=== PATIENT | female | born 2005 | race Caucasian/White ===

== ENCOUNTER 2025-01-03 07:19 | Outpatient (CLI) | payer OTHER, SELFPAY ==
--- OUTSIDE RECORDS SUMMARY | 2024-01-12 14:30 | XMS_ITS | Encounter Summary ---
Author Organization [place] [address] Care Team Providers Care Painter Plate Name Role Phone Myesha Cat APRN Primary Care Provider [phone] Reason for Visit * Oncology Medication Prior Authorization (Routine) - Closed Specialty Diagnoses / Procedures Referred By Contkalpesh t Referred To Contact Diagnoses Iron malabsorption Iron deficiency anemia due to chronic blood loss Procedures [place] IRON SUCROSE INJECTION Nilda Cano APRN 1 [place] [address] Phone: tel: fax: [address] [place] [address] Phone: tel: fax: Referral ID Status Reason Start Date Expiration Date Visits Re quested Visits Authorized [id number] Closed 12/27/2023 12/26/2024 99 99 Encounter Details Date Type Department Care Team (Late st Contact Info) Description 01/12/2024 2:30 PM EDT Hospital Encounter [facility] [address] [place] [address] Excused Social History Tobacco Use [...] as of this encounter Functional Status * Cognitive and Functional Status Question Answer Date of Assessment Author Is the person deaf or does he/she have serious difficulty hearing? No 09/20/2024 9:22 AM EDT Sneha Rodrigues Ma, RMA Is the person blind or does he/she have serious difficulty seeing even when wearing glasses? No 09/20/2024 9:22 AM EDT Sneha Rodrigues Ma, RMA Does this person have seriou s difficulty walking or climbing stairs? No 09/20/2024 9:22 AM EDT Sneha Rodrigues Ma, RMA Does this person have difficulty dressing or bathing? No 09/20/2024 9:22 AM EDT Sneha Bro, RMA * PHQ-9 Total Score Answer Date of Assessment Author 0 09/20/2024 9:22 AM EDT Nyla Rodrigues, MARCA * Question Answer Date of Assessment Author Little interest or pleasure in doing things 0 09/20/2024 9:22 AM EDT Sneha Rodrigues Ma, SHANTELLE Feeling down, depressed, or hopeless 0 09/20/2024 9:22 AM EDT Sneha Rodrigues Ma, SHANTELLE PHQ-2 Total Score 0 09/20/2024 9:22 AM EDT Sneha Rodrigues, RMA * Question Answer Date of Assessment Author Feeling Nervous, Anxious, or on Edge 0 09/20/2024 9:22 AM EDT Sneha Rodrigues Ma, SHANTELLE Not Being Able to Stop or Control Worrying 0 09/20/2024 9:22 AM EDT Sneha Rodirgues Ma, RMA Worrying too Much About Different Things 0 09/20/2024 9:22 AM EDT Sneha Rodrigues Ma, MARCA Trouble Relaxing 0 09/20/2024 9:22 AM EDT Sneha Vazquez, RMA Being so Restless That it is Hard to Sit Still 0 09/20/2024 9:22 AM EDT Sneha Rodrigues Ma, RMA Becoming Easily Annoyed or Irritable 0 09/20/2024 9:22 AM EDSneha Johnson Ma, SHANTELLE Feeling Afraid as if Somethi ng Awful Might Happen 0 09/20/2024 9:22 AM Sneha Lewis Ma, RMA PRASHANT-7 Total Score 0 09/20/2024 9:22 AM Sneha Lewis RMA documented as of this encounter Mental Status * Cognitive and Functional Status Question Answer Entry Date Author Because of a physical, menta l or emotional condition, does this person have difficulty doing errands alone such as visiting a doctor's office or shopping? No 09/20/2024 9:22 AM Sneha Lewis Ma, RMA Because of a physical, menta l or emotional condition, does this person have serious difficulty concentrating, remembering or making decisions? No 09/20/2024 9:22 AM Sneha Lewis Ma, RMA documented in this encounter Plan of Treatment Not on file documented as of this encounter Goals Goal Patient Goal Type Associated Problems Recent Progress Patient-Stated? Author Maintain a healthy diet, exercise regularly and maintain an ideal body weight General No Juana Matson RMA documented as of this encounter Visit Diagnoses Not on filedocumented in this encounter Care Teams Painter Plate Relationship Specialty Start Date End Date Myesha Cat APRN [address] [place] [id number] PCP - General Nurse Practitioner 10/04/21 documented as of this encounter
--- OUTSIDE RECORDS SUMMARY | 2025-01-03 07:22 | XMS_ITS | Encounter Summary ---
[facility] Address [address] [place] [address] Care Team Providers Care Suppression Crew Leader Name Role Phone Myesha Cat APRN Primary Care Provider [phone] [phone] Reason for Visit * Reason Comments Med Refill Encounter Details Date Type Department Care Team (Late st Contact Info) Description 03/22/2024 Refill [facility] OBGYN [address] [facility] [address] [place] [phone] Edmar Moore MD [address] [facility] [address] [place] [address] Pelvic mass; Intramural leiomyoma of uterus; Iron deficiency anemia due to chronic blood loss Social History Tobacco Use Types Packs/Day Years Used Date Smoking Tobacco: Never Smokeless Tobacco: Never Alcohol Use Standard Drinks/Week Comments Never 0 (1 standard drink = 0.6 oz pur e alcohol) [facility] Utilities Answer Date Recorded In the past 12 months has [employer], gas, oil, or water [employer] threatened to shut off services in your home? No 01/10/2024 AUDIT-C Answer Date Recorded Q1: How often do you have a drink containing alcohol? Never 01/10/2024 Q2: How many drinks containi ng alcohol do you have on a typical day when you are drinking? Patient does not drink Q3: How often do you have si x or more drinks on one occasion? Never 01/10/2024 Overall Financial Resource Strain (CARDIA) Answe r Date Recorded How hard is it for you to pa y for the very basics like food, housing, medical care, and heating? Very hard 01/10/2024 [facility] - Occupational Stress Questionnaire Answer Date Recorded Do you feel stress - tense, restless, nervous, or anxious, or unable to sleep at night because your mind is troubled all the time - these days? Not at all 01/10/2024 Exercise Vital Sign Answer Date Recorde d On average, how many days pe r week do you engage in moderate to strenuous exercise (like a brisk walk)? 7 days 01/10/2024 On average, how many minutes do you engage in exercise at this level? 0 min 01/10/2024 Hunger Vital Sign Answer Date Recorded Within the past 12 months, y ou worried that your food would run out before you got the money to buy more. Never true 01/10/20 24 Within the past 12 months, t he food you bought just didn't last and you didn't have money to get more. Never true 01/10/2024 PRAPARE - Transportation Answer Date Re corded In the past 12 months, has l ack of transportation kept you from medical appointments or from getting medications? No 12/30 In the past 12 months, has l ack of transportation kept you from meetings, work, or from getting things needed for daily living? No 01/10/2024 Abuse Screen Answer Date Recorded Feels Unsafe at Home or Work/School no 01/10/2024 Feels Threatened by Someone no 12/30 Does Anyone Try to Keep You From Having Contact with Others or Doing Things Outside Your Home? no 01/10/2024 Physical Signs of Abuse Present no 01/10/2024 Housing Stability Answer Date Recorded Current Living Arrangements home 12/30 Potentially Unsafe Housing Conditions none 01/10/2024 Family and Community Support Answer Basilio e Recorded If for any reason you need h elp with day-to-day activities such as bathing, preparing meals, shopping, managing finances, etc., do you get the help you need? I need a lot more help 01/10/2024 How often do you feel lonely or isolated from those around you? Never 01/10/2024 Employment Answer Date Recorded Do you want help finding or keeping work or a job? Yes, help finding work 01/10/2024 Disabilities Answer Date Recorded Difficulty Concentrating, Remembering or Making Decisions no 01/10/2024 Difficulty Managing Errands Independently no 01/10/2024 Education Answer Date Recorded Do you want help with school or training? For example, starting or completing job training or getting a high school diploma, GED or equivalent No 01/10/2024 Preferred Language Polish 01/10/2024 PHQ-2 Answer Date Recorded Retired PHQ-9: Brief Depression Severity Measure Score 0 01/10/2024 Comments No Sex and Gender Information Value Date Recorded Sex Assigned at Not on file Legal Sex Female 11:53 AM EDT Gender Identity Not on file Sexual Orientation Not on file documented as of this encounter Plan of Treatment Not on file documented as of this encounter Visit Diagnoses Diagnosis Pelvic mass Abdominal or pelvic swelling, mass or lump, unspecified site Intramural leiomyoma of uterus Iron deficiency anemia due to chronic blood loss Iron deficiency anemia secondary to blood loss (chronic) documented in this encounter Care Teams Suppression Crew Leader Relationship Specialty Start Date End Date Myesha Cat APRN [address] [place] [address] PCP - General Nurse Practitioner 01/09/24 documented as of this encounter
--- OUTSIDE RECORDS SUMMARY | 2025-01-03 07:22 | XMS_ITS | Clinical Summary ---
Author Organization [facility] Address [address] [place] [address] Care Team Providers Care Floral Decorator Name Role Phone Myesha Cat APRN Primary Care Provider [phone] [phone] Allergies No known active allergies Medications ferrous sulfate 325 (65 FE) MG tablet Take 1 tablet by mouth 2 (Two) Times a Day With Meals. Active ascorbic acid (VITAMIN C) 500 MG tablet Take 1 tablet by mouth Daily. OTC Active Cholecalciferol 25 MCG (1000 UT) tablet Take 1 tablet by mouth Daily. OTC Active dicyclomine (BENTYL) 20 MG tablet Take 1 tablet by mouth 3 (Three) Times a Day As Needed for Abdominal Cramping. 30 tablet 3 01/10/2024 4:23 PM EDT 4 Active ibuprofen (ADVIL,MOTRIN) 600 MG tablet Take 1 tablet by mouth Every 6 (Six) Hours As Needed for Mild Pain. 30 tablet 3 01/10/2024 4:23 PM EDT 4 Active leuprolide (Lupron Depot, 1-Month,) 3.75 MG injectionIndica tions:Intramura l leiomyoma of uterus,Pelvic mass,Iron deficiency anemia due to chronic blood loss Inject 3.75 mg into the appropriate muscle as directed by prescriber Every 28 (Twenty-Eight) Days. 1 kit 2 4 Active Additional Information Patient not taking.Reported on 10/02/2024 Drospirenone (Slynd) 4 MG tablet Take by mouth. Activ e Drospirenone (Slynd) 4 MG tablet Take 1 tablet by mouth Daily. 84 tablet 3 5 Active Active Problems Problem Noted Date Diagnosed Date Intramural leiomyoma of uterus 01/10/2024 Pelvic mass 01/09/2024 Family History Medical History Relation Name Comments Breast cancer Neg Hx Colon cancer Neg Hx Ovarian cancer Neg Hx Uterine cancer Neg Hx Social History Tobacco Use Types Packs/Day Years Used Date Smoking Tobacco: Never Smokeless Tobacco: Never Tobacco Cessation:Counseling Given: Not Answered Alcohol Use Standard Drinks/Week Comments Never 0 (1 standard drink = 0.6 oz pur e alcohol) [facility] Utilities Answer Date Recorded In the past 12 months has th e [employer], gas, oil, or water [employer] threatened to shut off services in your [...] medical care, and heating? Very hard 01/10/2024 [facility] - Occupational Stress Questionnaire Answer Date Recorded [...] GED or equivalent No 01/10/2024 Preferred Language Nauruan 01/10/2024 PHQ-2 Answer Date Recorded Retired PHQ-9: Brief Depression Severity Measure Score 0 01/10/2024 Comments No Sex and Gender Information Value Date Recorded Sex Assigned at Not on file Legal Sex Female 11:53 AM EDT Gender Identity Not on file Sexual Orientation Not on file Last Filed Vital Signs Vital Sign Reading Time Taken Comments Blood Pressure 118/76 10/02/2024 11:15 AM EDT Pulse 77 01/10/2024 7:19 AM EDT Temperature 36.7 C (98 F) 01/10/2024 7:19 AM EDT Respiratory Rate 16 01/10/2024 7:19 AM EDT Oxygen Saturation 100% 01/10/2024 4:41 AM EDT Inhaled Oxygen Concentration - - Weight 68.9 kg (152 lb) 10/02/2024 11:15 AM EDT Height 166.4 cm (5' 5.51 ) 07/02/2024 2:43 PM ES T Body Mass Index 24.9 07/02/2024 2:43 PM EST Plan of Treatment Health Maintenance Due Date Last Done Comments Annual Gynecologic Pelvic and Breast Exam 2003 HPV VACCINES (1 - 3-dose series) 11/01/2018 MENINGOCOCCAL B VACCINE (1 of 2 - Standard) 2019 COVID-19 Vaccine (1 - 2023- season) 2023 ANNUAL PHYSICAL 01/10/2024 HEPATITIS C SCREENING 01/10/2024 TDAP/TD VACCINES (2 - Td or Tdap) 08/11/2024 08/11/2014 PAP SMEAR 11/01/2024 INFLUENZA VACCINE 01/29/2025 Pneumococcal Vaccine 0-49 Aged Out 2007, 11/03/2004, 06/01/2004, Additional history exists No longer eligible based on patient's age to complete this topic MENINGOCOCCAL VACCINE Completed 10/04/2021 Insurance [place] [id number] Advance Directives * CPR (Attempt to Resuscitate) (Latest Code Status on File) Date Activated Date Inactivated Comments 01/09/2024 2:17 PM 01/10/2024 6:50 PM Question Answer Comments Code Status (Patient has no pulse and is not breathing): CPR (Attempt to Resuscitate) Medical Interventions (Patie nt has pulse or is breathing): Full Support Care Teams Floral Decorator Relationship Specialty Start Date End Date Myesha Cat APRN [address] [place] [address] PCP - General Nurse Practitioner 01/09/24
--- OUTSIDE RECORDS SUMMARY | 2025-01-03 07:22 | XMS_ITS | Encounter Summary ---
[facility] Organization [facility] Address [address] [place] [address] Care Team Providers Care Experimental Physicist Name Role Phone Myesha Cat APRN Primary Care Provider [phone] [phone] Reason for Visit * Reason Comments Med Refill Encounter Details Date Type Department Care Team (Late st Contact Info) Description 07/03/2024 Refill [facility] OBGYN [address] [address] Edmar Moore MD [address] [facility] [address] [place] [address] Intramural leiomyoma of uterus; Pelvic mass; Iron deficiency anemia due to chronic blood loss Social History Tobacco Use Types Packs/Day Years Used Date Smoking Tobacco: Never Smokeless Tobacco: Never Alcohol Use Standard Drinks/Week Comments Never 0 (1 standard drink = 0.6 oz pur e alcohol) [facility] Utilities Answer Date Recorded In the past 12 months has [employer], gas, oil, or water [employer] threatened to shut off services in your [...] medical care, and heating? Very hard 01/10/2024 [facility] - Occupational Stress Questionnaire Answer Date [...] GED or equivalent No 01/10/2024 Preferred Language Malay 01/10/2024 PHQ-2 Answer Date Recorded Retired PHQ-9: Brief Depression Severity Measure Score 0 01/10/2024 Comments No Sex and Gender Information Value Date Recorded Sex Assigned at Not on file Legal Sex Female 11:53 AM EDT Gender Identity Not on file Sexual Orientation Not on file documented as of this encounter Miscellaneous Notes * Telephone Encounter - Neva Barragan MA - 07/03/2024 10:31 AM EST Medication d/c'd on 07/02/24 documented in this encounter Plan of Treatment Not on file documented as of this encounter Visit Diagnoses Diagnosis Intramural leiomyoma of uterus Pelvic mass Abdominal or pelvic swelling, mass or lump, unspecified site Iron deficiency anemia due to chronic blood loss Iron deficiency anemia secondary to blood loss (chronic) documented in this encounter Care Teams Experimental Physicist Relationship Specialty Start Date End Date Myesha Cat APRN [address] [place] [address] PCP - General Nurse Practitioner 01/09/24 documented as of this encounter
--- OUTSIDE RECORDS SUMMARY | 2025-01-03 07:22 | XMS_ITS | Clinical Summary ---
Author Organization [facility] Address [address] [facility] [address] [place] [address] Phone Care Team Providers Care Door To Door Lead Generation Name Role Phone Myesha Cat APRN Primary Care Provider [phone] [phone] Mohini Harvey MD Unavailable [phone] Allergies No known active allergies Medications ferrous sulfate 325 mg (65 mg iron) Oral Tablet, Delayed Release (E.C.)Indication s:Microcytic anemia Take 1 Tablet by mouth 2 times daily. 180 Tablet 3 12/22/2023 Active ascorbic acid (VITAMIN C ORAL) Take by mouth daily. Active calcium carbonate/vitami n D3 (VITAMIN D-3 ORAL) Take by mouth daily. Active dicyclomine (BENTYL) 20 mg Oral Tablet Take 20 mg by mouth as needed. 01/10/2024 Active norethindrone (AYGESTIN) 5 mg Oral Tablet TAKE 1 TABLET BY MOUTH ONCE DAILY FOR 30 DOSES 03/02/2024 Active traMADoL (ULTRAM) 50 mg Oral Tablet as needed. 01/10/2024 Active Active Problems Problem Noted Date Diagnosed Date Iron deficiency anemia due to chronic blood loss 12/27/2023 Iron malabsorption 12/27/2023 Immunizations Immunization Administration Dates Next Due DTaP 11/20/2007, 5,06/01/2004,03/30,01/06/2004 Hep B/HiB 11/03/2004,03/30/2004,01/06/2004 Hepatitis A, Ped/Adol, 2 Dose 10/04/2021, 019 HiB (HbOC) 06/01/2004 IPV 11/20/2007, 5,03/30/2004,01/05 LAST MANUFACTURED 2011-Pneum ococcal Conjugate 7 Valent 11/20/2007,11/03/2004,06/01/2004,03/30,01/06/2004 MMR 11/20/2007,11/03/2004 Meningococcal Conjugate 10/04/2021 Tdap 08/11/2014 Varicella 11/05/2008,02/09/2005 Family History Medical History Relation Name Comments Gout Father Diabetes Maternal Grandfather Cancer Maternal Grandmother Cancer Mother Cancer Paternal Grandmother High Blood Pressure Paternal Grandmother Relation Name Status Comments Father Alive Maternal Grandfather Maternal Grandmother Mother Alive Paternal Grandmother Social History Tobacco Use Types Packs/Day Years Used Date Smoking Tobacco: Never Passive Smoke Exposure: Never Smokeless Tobacco: Never Tobacco Cessation:Counseling Given: [...] on file Sexual Orientation Not on file Obstetrics History Last Filed Vital Signs Vital Sign Reading Time Taken Comments Blood Pressure 110/74 09/20/2024 9:22 AM EDT Pulse 89 09/20/2024 9:22 AM EDT Temperature 36.8 C (98.2 F) 09/20/2024 9:22 AM EDT Respiratory Rate 12 03/22/2024 2:08 PM EST Oxygen Saturation 99% 09/20/2024 9:22 AM EDT Inhaled Oxygen Concentration - - Weight 68.9 kg (152 lb) 09/20/2024 9:22 AM EDT Height 166.4 cm (5' 5.5 ) 09/20/2024 9:22 AM EDT Body Mass Index 24.91 09/20/2024 9:22 AM EDT Plan of Treatment Health Maintenance Due Date Last Done Comments HPV (1 - 3-dose series) 11/01/2018 Meningococcal B Vaccine (1 of 2 - Standard) 2019 DTaP/TDaP/Td (7 - Td or Tdap) 08/11/2024 08/11/2014, 11/20/2007, 02/09/2005, Additional history exists Cervical Cancer Screening 11/01/2024 Pap Smear 11/01/2024 Annual Wellness Exam 12/20/2024 12/21/2023 COVID-19 Vaccine ( season) 2024 Influenza Vaccine (#1) 2024 Hepatitis B Vaccine Completed 11/03/2004, 03/30/2004, 01/06/2004 Pneumococcal Vaccine 0-49 Aged Out 2007, 11/03/2004, 06/01/2004, Additional history exists No longer eligible based on patient's age to complete this topic Goals Goal Patient Goal Type Associated Problems Recent Progress Patient-Stated? Author Maintain a healthy diet, exercise regularly and maintain an ideal body weight General No Juana Matson RMA Insurance [id number] [place] [phone] Care Teams Door To Door Lead Generation Relationship Specialty Start Date End Date Myesha Cat APRN [address] [place] [address] PCP - General Nurse Practitioner 10/04/21 Mohini Harvey MD [address] [place] [address] [place] [address] Medical Oncologist Internal Medicine-Hematology and Oncology 04/05/24
--- OUTSIDE RECORDS SUMMARY | 2025-01-03 07:22 | XMS_ITS | Encounter Summary ---
Author Organization [place] [address] Care Team Providers Care Automotive Parts Salesperson Name Role Phone Myesha Cat APRN Primary Care Provider [phone] Mohini Harvey MD Unavailable [phone] Encounter Details Date Type Department Care Team (Latest Contact Info) Description 09/24/2024 Results Follow-Up [facility] [address] [facility] [place] [address] Myesha Cat APRN [address] [place] [address] IRON+TIBC, CBC WITH DIFF, COMPREHENSIVE METABOLIC PANEL, Additional followed-up results: 5 Social History Tobacco Use Types Packs/Day Years [...] as of this encounter Functional Status * Is the person deaf or does he/she have serious difficulty hearing? Answer Date of Assessment Author No 09/20/2024 9:22 AM EDT Nyla Rodrigues RMA * Is the person blind or does he/she have serious difficulty seeing even when wearing glasses? Answer Date of Assessment Author No 09/20/2024 9:22 AM Nyla Lewis RMA * Does this person have serious difficulty walking or climbing stairs? Answer Date of Assessment Author No 09/20/2024 9:22 AM Nyla Lewis RMA * Does this person have difficulty dressing or bathing? Answer Date of Assessment Author No 09/20/2024 9:22 AM Nyla Lewis RMA * Because of a physical, mental or emotional condition, does this person have difficulty doing errands alone such as visiting a doctor's office or shopping? Answer Date of Assessment Author No 09/20/2024 9:22 AM Nyla Lewis RMA documented as of this encounter Mental Status * Because of a physical, mental or emotional condition, does this person have serious difficulty concentrating, remembering or making decisions? Answer Entry Date Author No 09/20/2024 9:22 AM Nyla Lewis RMA documented in this encounter Plan of Treatment Not on file documented as of this encounter Goals Goal Patient Goal Type Associated Problems Recent Progress Patient-Stated? Author Maintain a healthy diet, exercise regularly and maintain an ideal body weight General No Juana Matson RMA documented as of this encounter Visit Diagnoses Not on filedocumented in this encounter Care Teams Automotive Parts Salesperson Relationship Specialty Start Date End Date Myesha Cat APRN [address] [place] [id number] PCP - General Nurse Practitioner 10/04/21 Mohini Harvey MD [address] [place] [address] [place] [address] Medical Oncologist Internal Medicine-Hematology and Oncology 04/05/24 documented as of this encounter
--- NOTE | 2025-01-03 07:30 | CT_ITS ---
FINAL REPORT TECHNIQUE: Thin section axial images were obtained through the paranasal sinuses without contrast. Reconstruction images were obtained from the axial data. Exam was performed using dose reduction techniques such as automated exposure control, adjustment of the mA and kV according to patient size, and use of iterative reconstruction technique. CLINICAL HISTORY: evaluate and treat for sinus polyps COMPARISON: None FINDINGS: There is a mucous retention cyst or polyp in the floor of the right maxillary sinus measuring 20 mm in diameter. Otherwise, there is mild mucoperiosteal thickening in the maxillary sinuses. The sphenoid, ethmoid, and frontal sinuses are clear. The maxillary infundibulum is patent on the left, but occluded on the right by mucosal thickening. There is no significant nasal septal deviation. There is no acute osseous abnormality. Remaining soft tissues are unremarkable. IMPRESSION: Mucous retention cyst/polyp is present in the floor of the right maxillary sinus measuring 20 mm in size. Otherwise, there is mild mucoperiosteal thickening of the maxillary sinuses. The right maxillary infundibulum is occluded by mucosal thickening, while the left is patent. Reviewed, Interpreted and Dictated by Ivory Kaplan MD Transcribed by Jyoti Collins Authenticated and [facility]
== END 2025-01-03 23:59 | disposition home or self-care (01) ==
PROVIDERS: PCP Nurse Practitioner; Visit Provider Nurse Practitioner
DX: J33.8 Other polyp of sinus (principal); J32.9 Chronic sinusitis, unspecified; R93.0 Abnormal findings on diagnostic imaging of skull and head, not elsewhere classified
CPT/HCPCS: 70486

== ENCOUNTER 2025-03-21 08:54 | Outpatient (CLI) | payer OTHER, SELFPAY ==
--- OUTSIDE RECORDS SUMMARY | 2024-01-12 13:30 | XMS_ITS | Encounter Summary ---
Author Organization [place] [address] Care Team Providers Care Customer Marketing Manager Name Role Phone Myesha Cat APRN Primary Care Provider [phone] [phone] Reason for Visit * Oncology Medication Prior Authorization (Routine) - Closed Specialty Diagnoses / Procedures Referred By Contkalpesh t Referred To Contact Diagnoses Iron malabsorption Iron deficiency anemia due to chronic blood loss Procedures [place] IRON SUCROSE INJECTION Nilda Cano APRN 1 [place] [address] Phone: tel: fax: [address] [place] [address] Phone: tel: fax: Referral ID Status Reason Start Date Expiration Date Visits Re quested Visits Authorized [id number] Closed 12/27/2023 12/26/2024 99 99 Encounter Details Date Type Department Care Team (Late st Contact Info) Description 01/12/2024 2:30 PM EDT Hospital Encounter [facility] [address] [place] [address] Excused Social History Tobacco Use Types Packs/Day Years Used Date Smoking Tobacco: Never Passive Smoke Exposure: Never Smokeless Tobacco: Never Alcohol Use Standard Drinks/Week Comments Never 0 (1 standard drink = 0.6 oz pur e alcohol) PHQ-2 Answer Date Recorded PHQ-2 Total Score 0 09/20/2024 Sexually Active Control Partners Comments Never Comments No Sex and Gender Information Value Date Recorded Sex Assigned at Not on file Legal Sex Female 10:46 AM EDT Gender Identity Not on file Sexual Orientation Not on file documented as of this encounter Functional Status * PHQ-9 Total Score Answer Date of Assessment Author 0 09/20/2024 9:22 AM EDT Nyla Rodrigues RMA * Question Answer Date of Assessment Author Little interest or pleasure in doing things 0 09/20/2024 9:22 AM EDT Sneha Rodrigues Ma, SHANTELLE Feeling down, depressed, or hopeless 0 09/20/2024 9:22 AM EDT Sneha Rodrigues Ma, RMNyla PHQ-2 Total Score 0 09/20/2024 9:22 AM EDT Sneha Rodrigues, RMA documented as of this encounter Mental Status * Question Answer Entry Date Author Because of a physical, menta l or emotional condition, does this person have difficulty doing errands alone such as visiting a doctor's office or shopping? No 09/20/2024 9:22 AM EDT Sneha Rodrigues Ma, SHANTELLE Because of a physical, menta l or emotional condition, does this person have serious difficulty concentrating, remembering or making decisions? No 09/20/2024 9:22 AM EDT Sneha Rodrigues Ma, RMA documented in this encounter Plan of Treatment Not on file documented as of this encounter Goals Goal Patient Goal Type Associated Problems Recent Progress Patient-Stated? Author Maintain a healthy diet, exercise regularly and maintain an ideal body weight General No Juana Matson RMA documented as of this encounter Visit Diagnoses Not on filedocumented in this encounter Care Teams Customer Marketing Manager Relationship Specialty Start Date End Date Myesha Cat APRN [address] [place] [id number] PCP - General Nurse Practitioner 10/04/21 documented as of this encounter
--- OUTSIDE RECORDS SUMMARY | 2025-02-03 06:58 | XMS_ITS | Encounter Summary ---
Author Organization [place] [address] Care Team Providers Care Road Manager Name Role Phone Myesha Cat ALICE Primary Care Provider [phone] Mohini Harvey MD Unavailable [phone] Reason for Visit * Reason Comments Follow-up Low von Willebrand f actor (vWF) ristocetin cofactor activity Other Clearance for nasal surgery, wisdom teeth removal Encounter Details Date Type Department Care Team (Latest Contact Info) Description 02/03/2025 7:58 AM EDT - 02/03/2025 8:44 AM EDT Hospital Encounter [facility] [address] [place] [address] Mohini Harvey MD [address] [place] [id number] Low von Willebrand factor (vWF) ristocetin cofactor activity (Primary Dx); Iron deficiency anemia due to chronic blood loss; Uterine leiomyoma, unspecified location Discharge Disposition: Home or Self Care Social History Tobacco Use Types Packs/Day Years [...] on file documented as of this encounter Last Filed Vital Signs Vital Sign Reading Time Taken Comments Blood Pressure 114/68 02/03/2025 8:04 AM EDT Pulse 86 02/03/2025 8:04 AM EDT Temperature 36.6 C (97.9 F) 02/03/2025 8:04 AM EDT Respiratory Rate 12 02/03/2025 8:04 AM EDT Oxygen Saturation 100% 02/03/2025 8:04 AM EDT Inhaled Oxygen Concentration - - Weight 71.8 kg (158 lb 6.4 oz) 02/03/2025 8:04 A M EDT Height 166.4 cm (5' 5.5 ) 02/03/2025 8:04 AM EDT Body Mass Index 25.96 02/03/2025 8:04 AM EDT documented in this encounter Functional Status * Is the person deaf or does he/she have serious difficulty hearing? Answer Date of Assessment Author No 09/20/2024 9:22 AM EDT Nyla Rodrigues RMA * Is the person blind or does he/she have serious difficulty seeing even when wearing glasses? Answer Date of Assessment Author No 09/20/2024 9:22 AM EDT Nyla Rodrigues RMA * Does this person have serious difficulty walking or climbing stairs? Answer Date of Assessment Author No 09/20/2024 9:22 AM Nyla Lewis RMA * Does this person have difficulty dressing or bathing? Answer Date of Assessment Author No 09/20/2024 9:22 AM EDNyla Johnson RMA * Because of a physical, mental or emotional condition, does this person have difficulty doing errands alone such as visiting a doctor's office or shopping? Answer Date of Assessment Author No 09/20/2024 9:22 AM EDNyla Johnson RMA documented as of this encounter Mental Status * Because of a physical, mental or emotional condition, does this person have serious difficulty concentrating, remembering or making decisions? Answer Entry Date Author No 09/20/2024 9:22 AM Nyla Lewis RMA documented in this encounter Medications at Time of Discharge ALPRAZolam (XANAX) 1 mg Oral Tablet TAKE 1 TABLET BY MOUTH 1 HOUR PRIOR TO APPOINTMENT 12/05/2024 amoxicillin (AMOXIL) 500 mg Oral Capsule TAKE 1 CAPSULE BY MOUTH EVERY 6 HOURS NEEDED UNTIL GONE 12/05/2024 ascorbic acid (VITAMIN C ORAL) Take by mouth daily. calcium carbonate/vitami n D3 (VITAMIN D-3 ORAL) Take by mouth daily. dexAMETHasone (DECADRON) 0.75 mg Oral Tablet TAKE 3 TABLETS BY MOUTH ON FIRST DAY POST OP, TWO ON DAY TWO POST OP AND ONE ON DAY THREE POST OP 12/05/2024 dicyclomine (BENTYL) 20 mg Oral Tablet Take 20 mg by mouth as needed. 01/10/2024 ferrous sulfate 325 mg (65 mg iron) Oral Tablet, Delayed Release (E.C.)Indication s:Microcytic anemia Take 1 Tablet by mouth 2 times daily. 180 Tablet 3 12/22/2023 HYDROcodone-acet aminophen (NORCO) 5-325 mg Oral Tablet Take 1 Tablet by mouth every 4 hours as needed. for pain 12/05/2024 SLYND 4 mg (28) Oral Tablet Take 1 Tablet by mouth daily. documented as of this encounter Discharge Disposition Disposition Code Departure Means Destination Home or Self Care documented in this encounter Progress Notes * Mohini Harvey MD - 02/03/2025 8:15 AM EDT Images from the original note were not included. Patient: Carmen Gomez CSN: [id number] Date of : 2005 Age: 19 y.o. Date of Service: 02/03/2025 HEMATOLOGY/ONCOLOGY FOLLOW UP VISIT Primary Oncologist: Mohini Harvey MD DIAGNOSIS & TREATMENT HISTORY: Oncology History Overview Note Iron Deficiency Anemia Most likely secondary to menorrhagia No problem history exists. Cancer Staging No matching staging information was found for the patient. CURRENT TREATMENT: Observation INTERVAL HISTORY: Carmen Gomez is coming today for Chief Complaint Patient presents with Follow-up Low von Willebrand factor (vWF) ristocetin cofactor activity Other Clearance for nasal surgery, wisdom teeth removal Presents today for coag recommendations prior to elective nasal surgery at [facility]. Has been followed by Hematology for DEMARCUS 2/2 menorrhagia. As part of her w/u she had coag testing12/2023 showing low vWF R:CoF of 37% and a normal vWF Ag of 57%. In Mar 2024 FVIII Activity was checked and was wnl at 69%. She had repeat coag testing 03/2024 which showed the FVIII was again nl (71%) but the vWF R:CoF was now normal at 61% but the vWF Ag was now low at 49%. She has also had U/S pelvis showing a large ant intramural fibroid. No FHx of bleeding d/o. No hemarthrosis, no hematomas, does bruise easily and has nose bleeding related to need for nasal surgery but no other excessive ble eding. PHYSICAL EXAM: Vitals: 02/03/25 0804 BP: 114/68 Pulse: 86 Resp: 12 Temp: 97.9 ??F (36.6 ??C) SpO2: 100% Wt Readings from Last 3 Encounters: 02/03/25 158 lb 6.4 oz (71.8 kg) 09/20/24 152 lb (68.9 kg) 03/22/24 153 lb 8 oz (69.6 kg) ECO Physical Exam Constitutional: General: She is not in acute distress. Pulmonary: Effort: Pulmonary effort is normal. No respiratory distress. Neurological: Mental Status: She is alert and oriented to person, place, and time. Psychiatric: Mood and Affect: Mood and affect normal. MEDICAL DATA REVIEW: Medication, Allergies, Labs, Images, Path Reviewed. von Willebrand factor multimeric analysis: normal multimeric distribution 01/19/24 14:52 03/22/24 14:23 04/30/24 08:59 02/03/25 09:01 Factor VIII, Activity 69 71 vonWillebrand Ristocetin Co-Factor 37 (L) 61 vonWillebrand Factor Antigen 57 49 (L) INR 1.08 PT 12.4 PTT 37.4 (H) ASSESSMENT & PLAN Carmen was seen today for follow-up and other. Diagnoses and all orders for this visit: Low von Willebrand factor (vWF) ristocetin cofactor activity - FACTOR VIII, ACTIVITY -REF LAB; Future - VON WILLEBRAND FACTOR ACTIVITY (RCF) - REF LAB; Future - VON WILLEBRAND FACTOR ANTIGEN - REF LAB; Future - VON WILLEBRAND FACTOR COLLAGEN BINDING - REF LAB; Future - VON WILLEBRAND MULTIMERIC PANEL - REF LAB; Future - PT / INR; Future - PARTIAL THROMBOPLASTIN TIME; Future Iron deficiency anemia due to chronic blood loss Uterine leiomyoma, unspecified location Excessive Bleeding - Poss related to uterine fibroid but bleeding diathesis w/u in past was abnl - FVIII activity level has been wnl but on one occasion the vWF R:CoF was nl and on repeat it was low.On one occasion the vWF Ag was low and on the repeat it was nl. Given that her surgery is elective but also involves the airway, will repeat PT/PTT and vWF factors once approved. DEMARCUS - Hgb/MCV has normalized w/ IV iron. Pain - None Advance Directives: Living Will and POA: To be arranged Code status: To be addressed. Dispo: Return for F/u TBD based on results. Thank you for the opportunity to assist in the care of this patient, please feel free to contact meif I can be of any assistance. Mohini Harvey MD Hematology and Medical Oncology [facility] documented in this encounter Plan of Treatment Not on file documented as of this encounter Goals Goal Patient Goal Type Associated Problems Recent Progress Patient-Stated? Author Maintain a healthy diet, exercise regularly and maintain an ideal body weight General No Juana Matson RMA documented as of this encounter Procedures Procedure Name Priority Date/Time Associated Diagnosis Comments PARTIAL THROMBOPLASTIN TIME Routine 02/03/2025 9:01 AM EDT Low von Willebrand factor (vWF) ristocetin cofactor activity PT / INR Routine 02/03/2025 9:01 AM EDT Low von Willebrand factor (vWF) ristocetin cofactor activity documented in this encounter Results * VON WILLEBRAND MULTIMERIC PANEL - REF LAB (02/14/2025 12:04 PM EDT) vonWillebrand Factor Antigen 53 52 - 214 % 02/20/2025 2:17 PM EDT [facility] [employer] Comment: REFERENCE INTERVAL: von Willebrand Factor, Antigen Access complete set of age- and/or gender-specific reference intervals for this test in the [facility] Test Directory ([employer] [place]). vonWillebrand Ristocetin Co-Fa 65 51 - 215 % 02/20/2025 2:17 PM EDT [facility] Comment: REFERENCE INTERVAL: von Willebrand Factor, Activity (RCF) Access complete set of age- and/or gender-specific reference intervals for this test in the [facility] Test Directory ([employer] [place]). Factor VIII, Activity 81 56 - 191 % 02/20/2025 2:17 PM EDT [facility] Comment: REFERENCE INTERVAL: Factor VIII, Activity Access complete set of age- and/or gender-specific reference intervals for this test in the [facility] Test Directory ([employer] [place]). Performed By: [facility] [address] [place] [id number] Screen Printing Supervisor: Marcio Nuno MD, PhD CLIA Number: [id number] Von Willebrand Multimeric See Note 02/20/2025 2:17 PM EDT [facility] Comment: von Willebrand factor multimeric analysis shows a normal multimeric distribution. A von Willebrand panel without VWF or factor VIII deficiencies combined with a normal multimeric distribution does not entirely rule out von Willebrand disease since von Willebrand values can fluctuate over time. If clinically indicated, consider repeating the von Willebrand panel. Additional information regarding diagnosis and subtyping of von Willebrand disease is available at [email or web address]. von Willebrand factor and factor VIII are acute phase reactants. Increased values are seen in , with estrogen-containing medications, inflammation, infection, liver disease, malignancy, and with exercise, stress, or trauma, including traumatic venipuncture. Acute phase reactions can mask low baseline values in patients with von Willebrand disease. Lower baseline von Willebrand and factor VIII values are found in blood type O individuals. Decreased values for von Willebrand factor and/or factor VIII activity may also be due to improper specimen handling. INTERPRETIVE INFORMATION: Von Willebrand Multimeric This test was developed and its performance characteristics determined by [facility]. It has not been cleared or approved by the [place] Food and Drug Administration. This test was performed in a CLIA certified laboratory and is intended for clinical purposes. Blood VENOUS BLOOD / Unknown Venipuncture / Unknown 02/14/2025 12:04 PM EDT 02/14/2025 12:17 PM EDT Mohini Harvey MD HEMATOLOGY ORDERABLES Final R esult Performing Organization Address [facility] Co de Phone Number [facility] [address] [place] [address] * VON WILLEBRAND FACTOR COLLAGEN BINDING - REF LAB (02/14/2025 12:04 PM EDT) VWF Collagen III Binding 52 50 - 203 IU/dL 02/24/2025 1:27 PM EDT [facility] Comment: For additional information, please visit [email or web address] This test was developed and its performance characteristics determined by [facility] It has not been cleared or approved by the [place] Food and Drug Administration. This test is used for clinical purposes. It should not be regarded as investigational or for research. This laboratory is certified under the Clinical Laboratory Improvement Amendments (CLIA) as qualified to perform high complexity clinical laboratory testing. Performed by: [facility] [address] [place] [address], Goyo Ibarra MD, PhD, Screen Printing Supervisor Blood VENOUS BLOOD / Unknown Venipuncture / Unknown 02/14/2025 12:04 PM EDT 02/14/2025 12:17 PM EDT Mohini Harvey MD HEMATOLOGY ORDERABLES Final R esult Performing Organization Address [facility] de Phone Number [facility] [address] [place] [address] * (ABNORMAL) PARTIAL THROMBOPLASTIN TIME (02/03/2025 9:01 AM EDT) PTT 37.4(H) 25.7 - 36.8 second(s) 02/03/2025 9:15 AM EDT [facility] Comment: Therapeutic range for unfractionated heparin: 50.1 - 98.7 seconds Therapeutic range for direct thrombin inhibitors: Argatroban is 1.5 to 3 times the aPTT baseline. Lepirudin is 1.5 to 2 times the aPTT baseline. The aPTT should not exceed 100 seconds. The dosage of Argatroban should be decreased in patients with hepatic impairment. The dosage of Lepirudin should be decreased in renal insufficiency. Blood VENOUS BLOOD / Unknown Venipuncture / Unknown 02/03/2025 9:01 AM EDT 02/03/2025 9:04 AM EDT Mohini Harvey MD HEMATOLOGY ORDERABLES Final R esult Performing Organization Address City/[facility]/ZIP Co de Phone Number [facility] [address] [place] [address] * PT / INR (02/03/2025 9:01 AM EDT) PT 12.4 10.5 - 13.6 second(s) 02/03/2025 9:15 AM EDT [facility] INR 1.08 0.91 - 1.18 (ratio) 02/03/2025 9:15 AM EDT [facility] Comment: Level of Therapy Indications Target INR Range Standard Dose Treatment and prophylaxis of venous 2.0 - 3.0 thrombosis, pulmonary embolism High Dose High risk patients with mechanical 2.5 - 3.5 heart valves Blood VENOUS BLOOD / Unknown Venipuncture / Unknown 02/03/2025 9:01 AM EDT 02/03/2025 9:04 AM EDT Mohini Harvey MD HEMATOLOGY ORDERABLES Final R esult Performing Organization Address City/[facility]/ZIP Co de Phone Number [facility] [address] [place] [address] documented in this encounter Visit Diagnoses Diagnosis Low von Willebrand factor (vWF) ristocetin cofactor activity- Primary Iron deficiency anemia due to chronic blood loss Iron deficiency anemia secondary to blood loss (chronic) Uterine leiomyoma, unspecified location documented in this encounter Discontinued Medications Medication Sig Discontinue Reason Start Date End Da te norethindrone (AYGESTIN) 5 mg Oral Tablet TAKE 1 TABLET BY MOUTH ONCE DAILY FOR 30 DOSES DELETE-Duplicate 03/02/2024 02/03/2025 traMADoL (ULTRAM) 50 mg Oral Tablet as needed. DELETE-Duplicate 01/10/2024 02/03/2025 documented as of this encounter Historical Medications * This list may reflect changes made after this encounter. HYDROcodone-acet aminophen (NORCO) 5-325 mg Oral Tablet Take 1 Tablet by mouth every 4 hours as needed. for pain 12/05/2024 SLYND 4 mg (28) Oral Tablet Take 1 Tablet by mouth daily. dexAMETHasone (DECADRON) 0.75 mg Oral Tablet TAKE 3 TABLETS BY MOUTH ON FIRST DAY POST OP, TWO ON DAY TWO POST OP AND ONE ON DAY THREE POST OP 12/05/2024 amoxicillin (AMOXIL) 500 mg Oral Capsule TAKE 1 CAPSULE BY MOUTH EVERY 6 HOURS NEEDED UNTIL GONE 12/05/2024 ALPRAZolam (XANAX) 1 mg Oral Tablet TAKE 1 TABLET BY MOUTH 1 HOUR PRIOR TO APPOINTMENT 12/05/2024 added in this encounter Orders Lab Orders Without Results Count Last Ordered D ate First Ordered Date FACTOR VIII, ACTIVITY -REF LAB 1 02/03/2025 VON WILLEBRAND FACTOR ACTIVI TY (RCF) - REF LAB 1 02/03/2025 VON WILLEBRAND FACTOR ANTIGEN - REF LAB 1 1 documented in this encounter Care Teams Road Manager Relationship Specialty Start Date End Date Myesha Cat APRN [address] [place] [address] PCP - General Nurse Practitioner 10/04/21 Mohini Harvey MD [address] [facility] [address] [place] [address] Medical Oncologist Internal Medicine-Hematology and Oncology 04/05/24 documented as of this encounter
--- OUTSIDE RECORDS SUMMARY | 2025-02-03 07:45 | XMS_ITS | Encounter Summary ---
Author Organization [place] [address] Care Team Providers Care [employer] W[employer] Consultant Name Role Phone Myesha Cat APRN Primary Care Provider [phone] Mohini Harvey MD Unavailable [phone] Encounter Details Date Type Department Care Team (Latest Contact Info) Description 02/03/2025 8:45 AM EDT - 02/03/2025 11:59 PM EDT Hospital Encounter [facility] [place] [address] Discharge Disposition: Home or Self Care Social [...] or Self Care documented in this encounter Plan of Treatment Not on file documented as of this encounter Goals Goal Patient Goal Type Associated Problems Recent Progress Patient-Stated? Author Maintain a healthy diet, exercise regularly and maintain an ideal body weight General No Juana Matson RMA documented as of this encounter Visit Diagnoses Not on filedocumented in this encounter Care Teams [employer] Consultant Relationship Specialty Start Date End Date Myesha Cat APRN [address] [place] [address] PCP - General Nurse Practitioner 10/04/21 Mohini Harvey MD [address] [place] [address] Medical Oncologist Internal Medicine-Hematology and Oncology 04/05/24 documented as of this encounter
--- OUTSIDE RECORDS SUMMARY | 2025-02-14 10:45 | XMS_ITS | Encounter Summary ---
Author [place] [address] Care Team Providers Care Pressure Tank Operator Name Role Phone Myesha Cat APRN Primary Care Provider [phone] Mohini Harvey MD Unavailable [phone] Encounter Details Date Type Department Care Team (Latest Contact Info) Description 02/14/2025 11:45 AM EDT - 02/14/2025 11:59 PM EDT Hospital Encounter [facility] [place] [address] Low von Willebrand factor (vWF) ristocetin cofactor activity Discharge Disposition: Home or Self Care Social [...] 09/20/2024 9:22 AM Nyla Lewis RMA * Is the person blind or [...] Procedure Name Priority Date/Time Associated Diagnosis Comments VON WILLEBRAND MULTIMERIC PANEL - REF LAB Routine 02/14/2025 12:04 PM EDT Low von Willebrand factor (vWF) ristocetin cofactor activity VON WILLEBRAND FACTOR COLLAGEN BINDING - REF LAB Routine 02/14/2025 12:04 PM EDT Low von Willebrand factor (vWF) ristocetin cofactor activity documented in this encounter Results * VON WILLEBRAND MULTIMERIC PANEL - REF LAB (02/14/2025 12:04 PM EDT) vonWillebrand Factor Antigen 53 52 - 214 % 02/20/2025 2:17 PM EDT [facility] Comment: REFERENCE INTERVAL: von Willebrand Factor, Antigen Access complete set of age- and/or gender-specific reference intervals for this test in the [facility] Test Directory ([employer]). vonWillebrand Ristocetin Co-Fa 65 51 - 215 % 02/20/2025 2:17 PM EDT [facility] Comment: REFERENCE INTERVAL: von Willebrand Factor, Activity (RCF) Access complete set of age- and/or gender-specific reference intervals for this test in the [facility] Test Directory ([employer]). Factor VIII, Activity 81 56 - 191 % 02/20/2025 2:17 PM EDT [facility] Comment: REFERENCE INTERVAL: Factor VIII, Activity Access complete set of age- and/or gender-specific reference intervals for this test in the [facility] Test Directory ([employer]). Performed By: [facility] [address] [place] [id number] Nascar Driver: Marcio Nuno MD, PhD CLIA Number: [id number] Von Willebrand Multimeric See Note 02/20/2025 2:17 PM EDT [facility] Comment: von Willebrand factor multimeric analysis shows [...] of von Willebrand disease is available at www.[employer]feedPack. von Willebrand factor and factor VIII are [...] developed and its performance characteristics determined by [facility]. It has not been cleared or approved by the US Food and Drug Administration. This test was performed in a CLIA certified laboratory and is intended for clinical purposes. Blood VENOUS BLOOD / Unknown Venipuncture / Unknown 02/14/2025 12:04 PM EDT 02/14/2025 12:17 PM EDT us Mohini Harvey MD HEMATOLOGY ORDERABLES Final R esult [facility] [address] [place] [address] * VON WILLEBRAND FACTOR COLLAGEN BINDING - REF LAB (02/14/2025 12:04 PM EDT) VWF Collagen III Binding 52 50 - 203 IU/dL 02/24/2025 1:27 PM EDT [facility] Comment: For additional information, please visit [email or web address] This test was developed and its performance characteristics determined by [facility]. It has not been cleared or approved by the US Food and Drug Administration. This test is used for clinical purposes. It should not be regarded as investigational or for research. This laboratory is certified under the Clinical Laboratory Improvement Amendments (CLIA) as qualified to perform high complexity clinical laboratory testing. Performed by: [facility]. [address] [place] [address], Goyo Ibarra MD, PhD, Nascar Driver Blood VENOUS BLOOD / Unknown Venipuncture / Unknown 02/14/2025 12:04 PM EDT 02/14/2025 12:17 PM EDT us Mohini Harvey MD HEMATOLOGY ORDERABLES Final R esult [facility] [address] [place] [address] documented in this encounter Visit Diagnoses Diagnosis Low von Willebrand factor (vWF) ristocetin cofactor activity documented in this encounter Orders Lab Orders Without Results Count Last Ordered D ate First Ordered Date FACTOR VIII, ACTIVITY -REF LAB 1 02/14/2025 VON WILLEBRAND FACTOR ANTIGEN - REF LAB 1 1 documented in this encounter Care Teams Pressure Tank Operator Relationship Specialty Start Date End Date Myesha Cat APRN [address] [place] [address] PCP - General Nurse Practitioner 10/04/21 Mohini Harvey MD [address] [place] [address] Medical Oncologist Internal Medicine-Hematology and Oncology 04/05/24 documented as of this encounter
[2025-03-21 08:01] VITALS: BMI 25.2
--- OUTSIDE RECORDS SUMMARY | 2025-03-21 08:58 | XMS_ITS | Encounter Summary ---
[facility] Address [address] [place] [address] Care Team Providers Care Continuous Improvement Consultant Name Role Phone Myesha Cat APRN Primary Care Provider [phone] Reason for Visit * Reason Comments Med Refill Encounter Details Date Type Department Care Team (Late st Contact Info) Description 03/22/2024 Refill [facility] [address] [facility] [address] [place] [address] Edmar Moore MD [address] [facility] [address] [place] [address] Pelvic mass; Intramural leiomyoma of uterus; Iron deficiency anemia due to chronic blood loss Social History Tobacco Use Types Packs/Day Years Used Date Smoking Tobacco: Never Smokeless Tobacco: Never Alcohol Use Standard Drinks/Week Comments Never 0 (1 standard drink = 0.6 oz pur e alcohol) [facility] Utilities Answer Date Recorded In the past 12 months has [employer], gas, oil, or water [employer] threatened to shut off services in your [...] medical care, and heating? Very hard 01/10/2024 [facility] - Occupational Stress Questionnaire Answer Date Recorded [...] GED or equivalent No 01/10/2024 Preferred Language Danish 01/10/2024 PHQ-2 Answer Date Recorded Retired PHQ-9: [...] (chronic) documented in this encounter Care Teams Continuous Improvement Consultant Relationship Specialty Start Date End Date Myesha Cat APRN [address] [place] [address] PCP - General Nurse Practitioner 01/09/24 documented as of this encounter
--- OUTSIDE RECORDS SUMMARY | 2025-03-21 08:58 | XMS_ITS | Encounter Summary ---
Author Organization [place] [address] Care Team Providers Care Sharples Machine Operator Name Role Phone Myesha Cat APRN Primary Care Provider [phone] Mohini Harvey MD Unavailable [phone] Reason for Visit * Reason Onset Date Comments Schedule Appointment 02/04/2025 Encounter Details Date Type Department Care Team (Late st Contact Info) Description 02/04/2025 Telephone [facility] [place] [address] Mohini Harvey MD [address] [place] [address] Schedule Appointment Social History Tobacco Use Types Packs/Day Years [...] Assessment Author No 09/20/2024 9:22 AM EDT Lilia Nyla MARC ScottNyla * Does this person have difficulty dressing or bathing? Answer Date of Assessment Author No 09/20/2024 9:22 AM EDT LiliaNyla MARC ScottNyla * Because of a physical, mental or emotional condition, does this person have difficulty doing errands alone such as visiting a doctor's office or shopping? Answer Date of Assessment Author No 09/20/2024 9:22 AM EDT LiliaNyla samir Espinosa SHANTELLE documented as of this encounter Mental Status * Because of a physical, mental or emotional condition, does this person have serious difficulty concentrating, remembering or making decisions? Answer Entry Date Author No 09/20/2024 9:22 AM EDT Nyla Rodrigues RMNyla documented in this encounter Miscellaneous Notes * Telephone Encounter - Shoshana Mcneil RN - 02/10/2025 8:43 AM EDT Patient called back, got her scheduled for 02/14/25 for labs to be drawn. * Telephone Encounter - Rebekah Restrepo MA - 02/06/2025 9:29 AM EDT I left a voicemail for the patient to call the office back. Left a voicemail for patients other on HIPAA to call the office back. Sending a letter to the patient due to attempting to contact the patient multiple times with no response. Just FYI * Telephone Encounter - Rebekah Restrepo MA - 02/05/2025 8:56 AM EDT I attempted to contact the patient to schedule lab appointment. I left a voicemail for the patient to call the office back. * Telephone Encounter - Rebekah Restrepo MA - 02/04/2025 9:58 AM EDT All labs that needed authorized are now PNR (Pre-cert not required). I attempted to contact the patient to schedule lab appointment. I left a voicemail for the patient to call the office back. documented in this encounter Plan of Treatment Not on file documented as of this encounter Goals Goal Patient Goal Type Associated Problems Recent Progress Patient-Stated? Author Maintain a healthy diet, exercise regularly and maintain an ideal body weight General No Juana Matson RMA documented as of this encounter Visit Diagnoses Not on filedocumented in this encounter Care Teams Sharples Machine Operator Relationship Specialty Start Date End Date Myesha Cat APRN [address] [place] [phone] PCP - General Nurse Practitioner 10/04/21 Mohini Harvey MD [address] [place] [address] Medical Oncologist Internal Medicine-Hematology and Oncology 04/05/24 documented as of this encounter
--- OUTSIDE RECORDS SUMMARY | 2025-03-21 08:58 | XMS_ITS | Encounter Summary ---
Author Organization [place] [address] Care Team Providers Care Humanities Coordinator Name Role Phone Myesha Cat APRN Primary Care Provider [phone] Mohini Harvey MD Unavailable [phone] Encounter Details Date Type Department Care Team (Late st Contact Info) Description 03/03/2025 Telephone [facility] [place] [id number] Macrina Cueto RN Social History Tobacco Use Types Packs/Day Years [...] Author No 09/20/2024 9:22 AM Nyla Lewis SHANTELLE * Does this person have difficulty dressing or bathing? Answer Date of Assessment Author No 09/20/2024 9:22 AM TINO RodriguesNyla samir Espinosa SHANTELLE * Because of a physical, mental or emotional condition, does this person have difficulty doing errands alone such as visiting a doctor's office or shopping? Answer Date of Assessment Author No 09/20/2024 9:22 AM TINO Nyla Rodrigues noemimaryuri Espinosa SHANTELLE documented as of this encounter Mental Status * Because of a physical, mental or emotional condition, does this person have serious difficulty concentrating, remembering or making decisions? Answer Entry Date Author No 09/20/2024 9:22 AM TINO RodriguesNyla samir Mcdonalde SHANTELLE documented in this encounter Miscellaneous Notes * Telephone Encounter - Shoshana Mcneil RN - 03/03/2025 3:58 PM EST Faxed letter to [facility] [phone] ENT clinic. * Telephone Encounter - Shoshana Mcneil RN - 03/03/2025 3:32 PM EST LVM attempting to contact Jami Simons, per Dr. Wes curiel returned normal and patient is fine to have surgery. Called patient and LVM with update to inform ok to have surgery. * Telephone Encounter - Macrina Cueto RN - 03/03/2025 11:06 AM EST Needs surgery clearance was waiting on labs, labs have since resulted. Please advise. Needs sent to[facility] Nicole Ronak . documented in this encounter Plan of Treatment Not on file documented as of this encounter Goals Goal Patient Goal Type Associated Problems Recent Progress Patient-Stated? Author Maintain a healthy diet, exercise regularly and maintain an ideal body weight General No Juana Matson, SHANTELLE documented as of this encounter Visit Diagnoses Not on filedocumented in this encounter Care Teams Humanities Coordinator Relationship Specialty Start Date End Date Myesha Cat APRN [address] [place] [phone] PCP - General Nurse Practitioner 10/04/21 Mohini Harvey MD [address] [place] [address] Medical Oncologist Internal Medicine-Hematology and Oncology 04/05/24 documented as of this encounter
--- OUTSIDE RECORDS SUMMARY | 2025-03-21 08:58 | XMS_ITS | Clinical Summary ---
Author Organization [facility] Address [address] [place] [address] Care Team Providers Care Towel Folder Name Role Phone Myesha Cat APRN Primary Care Provider [phone] Allergies No known active allergies Medications ferrous [...] drink = 0.6 oz pur e alcohol) [facility] Utilities Answer Date Recorded In the past 12 months has th e [employer], gas, oil, or water [employer] threatened to shut off services in your [...] medical care, and heating? Very hard 01/10/2024 [facility] - Occupational Stress [...] GED or equivalent No 01/10/2024 Preferred Language Nigerien 01/10/2024 PHQ-2 Answer Date Recorded Retired PHQ-9: [...] VACCINE (1 of 2 - Standard) 2019 ANNUAL PHYSICAL 01/10/2024 HEPATITIS C SCREENING 01/10/2024 TDAP/TD VACCINES (2 - Td or Tdap) 08/11/2024 08/11/2014 PAP SMEAR 11/01/2024 INFLUENZA VACCINE 11/29/2024 Pneumococcal Vaccine 0-49 Aged Out 2007, 11/03/2004, 06/01/2004, Additional history exists No longer eligible based on patient's age to complete this topic MENINGOCOCCAL VACCINE Completed 10/04/2021 Insurance [place]N BURNS [id number] Advance Directives * CPR (Attempt to Resuscitate) (Latest Code Status on File) Date Activated Date Inactivated Comments 01/09/2024 2:17 PM 01/10/2024 6:50 PM Question Answer Comments Code Status (Patient has no pulse and is not breathing): CPR (Attempt to Resuscitate) Medical Interventions (Patie nt has pulse or is breathing): Full Support Care Teams Towel Folder Relationship Specialty Start Date End Date Myesha Cat APRN [address] [place] [address] PCP - General Nurse Practitioner 01/09/24
--- OUTSIDE RECORDS SUMMARY | 2025-03-21 08:58 | XMS_ITS | Clinical Summary ---
Author Organization [facility] Address [address] [facility] [address] [place] [address] Phone Care Team Providers Care Business Risk Consultant Name Role Phone Myesha Cat APRN Primary Care Provider [phone] Mohini Harvey MD Unavailable [phone] Allergies No known active allergies Medications ferrous sulfate 325 mg (65 mg iron) Oral Tablet, Delayed Release (E.C.)Indicatio ns:Microcytic anemia Take 1 Tablet by mouth 2 times daily. 180 Tablet 3 4 Active Additional Information Patient not taking.Reported on 02/03/2025 ascorbic acid (VITAMIN C ORAL) Take by mouth daily. Active calcium carbonate/vitam in D3 (VITAMIN D-3 ORAL) Take by mouth daily. Active dicyclomine (BENTYL) 20 mg Oral Tablet Take 20 mg by mouth as needed. 4 Active ALPRAZolam (XANAX) 1 mg Oral Tablet TAKE 1 TABLET BY MOUTH 1 HOUR PRIOR TO APPOINTMENT 5 Active amoxicillin (AMOXIL) 500 mg Oral Capsule TAKE 1 CAPSULE BY MOUTH EVERY 6 HOURS NEEDED UNTIL GONE 5 Active dexAMETHasone (DECADRON) 0.75 mg Oral Tablet TAKE 3 TABLETS BY MOUTH ON FIRST DAY POST OP, TWO ON DAY TWO POST OP AND ONE ON DAY THREE POST OP 5 Active SLYND 4 mg (28) Oral Tablet Take 1 Tablet by mouth daily. Active HYDROcodone-trevor taminophen (NORCO) 5-325 mg Oral Tablet Take 1 Tablet by mouth every 4 hours as needed. 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 Encounters Date Type Department Care Team Description 03/03/2025 Telephone [place] [address] [place] [address] Macrina Cueto RN 02/14/2025 11:45 AM EDT - 02/14/2025 11:59 PM EDT Hospital Encounter [place] [address] [place] [place] [address] Low von Willebrand factor (vWF) ristocetin cofactor activity Discharge Disposition: Home or Self Care 02/04/2025 [address] [place] [address] Mohini Harvey MD Schedule Appointment 02/03/2025 8:45 AM EDT - 02/03/2025 11:59 PM EDT Hospital Encounter [place] [address] [place] [address] Discharge Disposition: Home or Self Care 02/03/2025 7:58 AM EDT - 02/03/2025 8:44 AM EDT [address] [place] [address] Mohini Harvey MD Low von Willebrand factor (vWF) ristocetin cofactor activity (Primary Dx); Iron deficiency anemia due to chronic blood loss; Uterine leiomyoma, unspecified location Discharge Disposition: Home or Self Care from Last 3 Months Immunizations Immunization Administration Dates Next Due DTaP [...] Mass Index 25.96 02/03/2025 8:04 AM EDT Plan of Treatment Health Maintenance Due Date Last Done Comments COVID-19 Vaccine (#1) 11/01/2008 HPV (1 - 3-dose series) 11/01/2018 Meningococcal B Vaccine (1 o f 2 - Standard) 2019 Pneumococcal Vaccine 0-49 (1 of 2 - PCV) 11/01/2022 11/20/2007, 11/03/2004, 06/01/2004, Additional history exists DTaP/TDaP/Td (7 - Td or Tdap) 08/11/2024, 11/20/2007, 02/09/2005, Additional history exists Cervical Cancer Screening 11/01/2024 Pap Smear 11/01/2024 Annual Wellness Exam 12/20/2024 12/21/2023 Influenza Vaccine (#1) 2024 Hepatitis B Vaccine Completed 11/03/2004, 03/30/2004, 01/06/2004 Goals Goal Patient Goal Type Associated Problems Recent Progress Patient-Stated? Author Maintain a healthy diet, exercise regularly and maintain an ideal body weight General No Juana Matson RMA Procedures Procedure Name Priority Date/Time Associated Diagnosis Comments VON WILLEBRAND MULTIMERIC PANEL - REF LAB Routine 02/14/2025 12:04 PM EDT Low von Willebrand factor (vWF) ristocetin cofactor activity VON WILLEBRAND FACTOR COLLAGEN BINDING - REF LAB Routine 02/14/2025 12:04 PM EDT Low von Willebrand factor (vWF) ristocetin cofactor activity PARTIAL THROMBOPLASTIN TIME Routine 02/03/2025 9:01 AM EDT Low von Willebrand factor (vWF) ristocetin cofactor activity PT / INR Routine 02/03/2025 9:01 AM EDT Low von Willebrand factor (vWF) ristocetin cofactor activity from Last 3 Months Results * VON WILLEBRAND MULTIMERIC PANEL - REF LAB (02/14/2025 12:04 PM EDT) vonWillebrand Factor Antigen 53 52 - 214 % 02/20/2025 2:17 PM EDT [facility] Comment: REFERENCE INTERVAL: von Willebrand Factor, Antigen Access complete set of age- and/or gender-specific reference intervals for this test in the [facility] Test Directory ([employer]). vonWillebrand Ristocetin Co-Fa 65 51 - 215 % 02/20/2025 2:17 PM EDT [facility] Comment: REFERENCE INTERVAL: von Willebrand Factor, Activity (RCF) Access complete set of age- and/or gender-specific reference intervals for this test in the [facility] Test Directory ([employer]). Factor VIII, Activity 81 56 - 191 % 02/20/2025 2:17 PM EDT [facility] Comment: REFERENCE INTERVAL: Factor VIII, Activity Access complete set of age- and/or gender-specific reference intervals for this test in the [facility] Test Directory ([employer]). Performed By: [facility] [address] [place] [address] Security Operations Analyst: Marcio Nuno MD, PhD CLIA Number: [id number] Von Willebrand Multimeric See Note 02/20/2025 2:17 PM EDT [facility] Comment: von Willebrand factor multimeric analysis shows [...] of von Willebrand disease is available at [email or web address]. von Willebrand factor and factor VIII are [...] developed and its performance characteristics determined by [facility]. It has not been cleared or approved by the US Food and Drug Administration. This test was performed in a CLIA certified laboratory and is intended for clinical purposes. Blood VENOUS BLOOD / Unknown Venipuncture / Unknown 02/14/2025 12:04 PM EDT 02/14/2025 12:17 PM EDT us Mohini Harvey MD HEMATOLOGY ORDERABLES Final R esult [facility] [address] [place] [address] * VON WILLEBRAND FACTOR COLLAGEN BINDING - REF LAB (02/14/2025 12:04 PM EDT) Pathologist [facility] VWF Collagen III Binding 52 50 - 203 IU/dL 02/24/2025 1:27 PM EDT [facility] Comment: For additional information, please visit [email or web address] This test was developed and its performance characteristics determined by [facility]. It has not been cleared or approved by the US Food and Drug Administration. This test is used for clinical purposes. It should not be regarded as investigational or for research. This laboratory is certified under the Clinical Laboratory Improvement Amendments (CLIA) as qualified to perform high complexity clinical laboratory testing. Performed by: [facility]. [address] [place] [id number], Goyo Ibarra MD, PhD, Security Operations Analyst Blood VENOUS BLOOD / Unknown Venipuncture / Unknown 02/14/2025 12:04 PM EDT 02/14/2025 12:17 PM EDT us Mohini Harvey MD HEMATOLOGY ORDERABLES Final R esult [facility] [address] [place] [address] * (ABNORMAL) PARTIAL THROMBOPLASTIN TIME (02/03/2025 9:01 AM EDT) [facility] PTT 37.4(H) 25.7 - 36.8 second(s) 02/03/2025 9:15 AM EDT [facility] Comment: Therapeutic range for unfractionated [...] ORDERABLES Final R esult Performing Organization Address [facility] Co de Phone Number [facility] [address] [place] [address] * PT / INR (02/03/2025 9:01 AM EDT) PT 12.4 10.5 - 13.6 second(s) 02/03/2025 9:15 AM EDT [facility] INR 1.08 0.91 - 1.18 (ratio) 02/03/2025 9:15 AM EDT [facility] Comment: Level of Therapy Indications Target INR Range Standard Dose Treatment and prophylaxis of venous 2.0 - 3.0 thrombosis, pulmonary embolism High Dose High risk patients with mechanical 2.5 - 3.5 heart valves Blood VENOUS BLOOD / Unknown Venipuncture / Unknown 02/03/2025 9:01 AM EDT 02/03/2025 9:04 AM EDT Mohini Harvey MD HEMATOLOGY ORDERABLES Final R [facility] Performing Organization Address [facility] Co de Phone Number [facility] [address] [place] [address] from Last 3 Months Insurance Care Teams Business Risk Consultant Relationship Specialty Start Date End Date Myesha Cat APRN [address] [place] [id number] PCP - General Nurse Practitioner 10/04/21 Mohini Harvey MD [address] [place] [address] Medical Oncologist Internal Medicine-Hematology and Oncology 04/05/24
--- OUTSIDE RECORDS SUMMARY | 2025-03-21 08:58 | XMS_ITS | Encounter Summary ---
[facility] Address [address] [place] [address] Care Team Providers Care Program Advisor Name Role Phone Myesha Cat APRN Primary Care Provider [phone] [phone] Reason for Visit * Reason Comments Med Refill Encounter Details Date Type Department Care Team (Late st Contact Info) Description 07/03/2024 Refill [facility] OBGYN [address] [address] Edmar Moore MD [address] [facility] [address] [place] [address] Intramural leiomyoma of uterus; Pelvic mass; Iron deficiency anemia due to chronic blood loss Social History Tobacco Use Types Packs/Day Years Used Date Smoking Tobacco: Never Smokeless Tobacco: Never Alcohol Use Standard Drinks/Week Comments Never 0 (1 standard drink = 0.6 oz pur e alcohol) [facility] Utilities Answer Date Recorded In the past 12 months has [employer], gas, oil, or water [employer] threatened to shut off services in your [...] medical care, and heating? Very hard 01/10/2024 [facility] - Occupational Stress Questionnaire Answer Date [...] GED or equivalent No 01/10/2024 Preferred Language Telugu 01/10/2024 PHQ-2 Answer Date Recorded Retired PHQ-9: [...] (chronic) documented in this encounter Care Teams Program Advisor Relationship Specialty Start Date End Date Myesha Cat APRN [address] [place] [address] PCP - General Nurse Practitioner 01/09/24 documented as of this encounter
[2025-03-21 09:32] LABS: Hematocrit 40.1 % (37.0-47.0); Hemoglobin 13.4 g/dL (12.2-16.2); Mean Corpuscular HGB Conc 33.4 g/dL (31.8-35.4); Mean Corpuscular Hemoglobin 28.4 pg (27.0-31.2); Mean Corpuscular Volume 85.0 fl (81-99); Platelet Count 235 K/mm3 (142-424); Red Blood Count 4.72 M/mm3 (4.20-5.40); White Blood Count 4.7 K/mm3 (4.8-10.8)
[2025-03-21 09:42] LABS: Anion Gap 12.1 mEq/L (5-15); Blood Urea Nitrogen 16 mg/dl (7-17); Calcium 9.5 mg/dl (8.4-10.2); Carbon Dioxide 24 mmol/L (22.0-30.0); Chloride 104 mmol/L (98-107); Creatinine Clearance Estimated 142 mL/min (50-200); Creatinine,Serum 0.70 mg/dl (0.52-1.04); Estimated Glomerular Filt Rate 106 ml/min (>60); GFR (African American) 128 ML/MIN (>60); Glucose 68 mg/dl (74-100); Potassium 4.1 mmoL/L (3.5-5.1); Sodium 136 mmol/L (136-145)
[2025-03-21 10:01] LABS: HCG Qualitative, Serum Negative (Negative)
[2025-03-21 11:38] LABS: RBC Morphology Normal; Total Cells Counted 100
== END 2025-03-21 23:59 | disposition home or self-care (01) ==
LOC: PREOP 08:55
PROVIDERS: PCP Nurse Practitioner; Visit Provider Otolaryngology
DX: Z01.812 Encounter for preprocedural laboratory examination (principal)
CPT/HCPCS: 80048; 84703; 85007; 85014; 85018; 85048; 85049

== ENCOUNTER 2025-03-24 06:43 | Day surgery (SDC) | payer OTHER, SELFPAY ==
[2025-03-21 11:10] VITALS: BMI 25.2
[2025-03-24] VITALS (11 sets, daily range): BP systolic 103–124; BP diastolic 59–78; PULSE 57–83; RESP 16–18; TEMP 36.2–43; O2SAT 92–100
[2025-03-24] MEDS: LACTATED RINGERS 1000ML 1,000 ML 25 ML IV (07:33)
--- NOTE | 2025-03-24 07:42 | P.PNANES_ITS ---
[facility] Disclaimer: The information contained in this section may have been updated after the patient was seen, as this information can be updated by other users. Medical History Left-sided epistaxis Polyp, nasal sinus Chronic sinusitis Uterine fibroid Von Willebrand disease Surgical History No significant past surgical history Family History Sister Anemia Mother Anemia Cancer Father Thyroid disorder Social History Smoking Status: Never smoker alcohol intake: current substance use type: denies use current occupational status: employed Travel in the last 8 weeks?: None Have you lived/traveled outside [place] in past 30 days?: No Contact w/someone who lives/traveled outside [place] past 30 days?: No Exposure to someone with infectious disease in past 14 days?: No Do you have a fever (greater than 100.4 F or 38 C)?: No Have you tested positive for COVID-19?: No Exposed to someone with COVID-19 in past 14 days?: No Do you have a sore throat?: No Do you have a cough?: No Do you have any weakness?: No Do you have any diarrhea?: No Are you experiencing any unusual bleeding?: No Do you have any muscle aches/pain?: No Do you have any abdominal pain?: No Are you experiencing loss of taste or smell?: No [facility] Anesthesia Checklist Patient Identification Patient Identification: Arm Band and Verbal (Name & ) Structural Data Admitted From: Home Planned Operative Procedure/s: image guided sinus surgery Consent for Planned Operative Procedure(s) Verified: Yes Verified Documents: Surgical Consent and History and Physical NPO Status Verified Time NPO: 00:00 Additional verifications Anesthesia Reactions: No Hx Blood Transfusions: No Blood Transfusion Reaction: No Airway Assessment Mallampati Score:: Class I Dentition: Good Dentition Neurological Assessment Level of Consciousness: Awake, Alert and Appropriate Hx Seizures: No Numbness or tingling in extremities: No Anesthesia Plan Anesthesia Risk discussed: Yes Anesthesia Plan: Verified ASA Class: I Anesthesia Type: General
[2025-03-24] MEDS: OXYMETAZOLINE NASAL SPRAY 0.05% 15ML 15 ML NS (08:12)
[2025-03-24] MEDS: LIDOCAINE 1% W/EPI 1:100,000 20ML VIAL 20 ML (09:15)
[2025-03-24] MEDS: OXYMETAZOLINE NASAL SPRAY 0.05% 15ML NS (09:15)
[2025-03-24] MEDS: MUPIROCIN 2% OINTMENT 22GM TUBE 22 GM TP (09:16)
[2025-03-24] MEDS: 0.9 % SODIUM CHLORIDE 1000ML 2,000 ML 100 ML IV (09:20)
--- NOTE | 2025-03-24 09:51 | P.OP_ITS ---
Date of procedure: 03/24/25 Pre-op Diagnosis:: 1. Chronic sinusitis 2. Bilateral maxillary sinus cysts 3. Left nasal epistaxis Post-op Diagnosis:: Same Procedure performed:: 1. Use of image guided system for bilateral endoscopic middle meatal antrostomy with tissue removal ([id number], [id number]) 2. Endoscopic cauterization of left anterior septal vessel Surgeon:: Richie Wu III, MD Per Diem Physical Therapist(s):: None USED [employer]ER:: Ubaldo Head Anesthesia: GETNyla Estimated blood loss (mL): 30 Operative findings:: Hypertrophic right middle turbinate, bilateral maxillary sinus cysts, left prominent septal vessel Operative note:: The patient was brought to the operating placed under general endotracheal anesthesia. She was then placed in lounge chair position and her nose was prepared with topical Afrin and lidocaine soaked cottonoids. After adequate times lateral vasoconstriction these were removed the face was prepared and draped in usual fashion and use of the image guided system was calibrated and gave us good feedback throughout the case. I began the dissection on the right side. The cottonoids were removed and a injection was carried out along the lateral nasal wall with 1% lidocaine with epinephrine solution. Under endoscopic and image guidance I was able to remove the uncinate process on the right. I then entered into the middle meatus this was opened more widely using a backbiting and down-biting instrument. The cystic structure was identified at the floor the sinus this was removed using the antral punch. After this was done xerogel pack was placed within the sinus opening, infiltrated with saline, and treated with topical mupirocin ointment. We began the dissection on the left side. Initially identified the prominent vessel on the anterior septum coming from the floor the nose. Using the suction cautery under low power this was cauterized along its branches. Topical mupirocin was applied. Tension was then turned towards the uncinate process on the left, this was removed inferiorly. I then opened into the middle meatus with a backbiting and down- biting instrument. The sinus contents were cleared using a the antral punch cystic structure was identified at the floor of the sinus. Once this was removed a xerogel pack was placed within the nose on the left side. This was treated with saline. I then applied topical mupirocin to the nasal cavity. The patient stomach contents were aspirated clear. She was awakened in the operating room taken recovery in good condition. Condition: stable Disposition: PACU Complications:: None
--- NOTE | 2025-03-24 09:53 | P.PNANES_ITS ---
[facility] Anesthesia Record Part I Anesthesia Record I Intake, IV Amount: 800 Hydration: Adequate Estimated blood loss (mL): 10 Urine output (mL): 0 Blood Products used (#): none Blood Pressure: 106/66 SaO2: 93 Pulse Rate: 81 Airway Patency: Patent Respiratory Rate: 16 Temperature: 98.1 F Patient is:: Drowsy and Stable Stable to PACU at:: 09:50
[2025-03-24] MEDS: KETOROLAC 30MG/ML VIAL 30 MG IV (10:06)
[2025-03-24] MEDS: MORPHINE 2MG/ML SYRINGE 2 MG IV (10:12)
[2025-03-24] MEDS: ONDANSETRON 4MG/2ML VIAL 4 MG IV (10:13)
--- NOTE | 2025-03-24 11:07 | P.PNANES_ITS ---
[facility] Anesthesia Record Part II Anesthesia Record Part II Discharge Time: 10:20 Destination: Surgical Day Care (OP Surgery) PACU nurse assessment reviewed?: Yes Patient Condition:: Good Anesthesia Complications:: None Swallowing reflex intact?: Yes Airway Patency: Patent Cyanosis?: No Blood Pressure: 114/72 SaO2: 94 Respiratory Rate: 16 Pulse Rate: 83 Temperature: 97.2 F Mental Status: Alert & Oriented Pain level:: 3 Nausea and/or vomitting:: None Intake, IV Amount: 0 Hydration: Adequate
== END 2025-03-24 11:10 | disposition home or self-care (01) ==
PROVIDERS: PCP Nurse Practitioner; Visit Provider Otolaryngology
PROC: (CPT 31267; principal; 2025-03-24 08:15)
DX: J33.8 Other polyp of sinus (principal); J32.9 Chronic sinusitis, unspecified; J32.4 Chronic pansinusitis; J34.1 Cyst and mucocele of nose and nasal sinus; R04.0 Epistaxis
CPT/HCPCS: 31267; J1100; J1885; J2003; J2004; J2250; J2270; J2405; J2704; J3010; J7030; J7120